=== PATIENT | male | born 1955 | race Two or more races ===

== ENCOUNTER 2019-09-27 10:38 | Emergency (ER) | payer MEDICAID, OTHER ==
[~2019-09-27] VITALS: Ht 170.2 cm; Wt 77.1 kg
[2019-09-27 10:46] VITALS: BP 142/73
== END 2019-09-27 11:24 | disposition home or self-care (01) ==
LOC: EDBD 10:38 → ER 10:38
DX: S20.312A Abrasion of left front wall of thorax, initial encounter (principal); Y08.89XA Assault by other specified means, initial encounter; Y93.89 Activity, other specified; Y92.89 Other specified places as the place of occurrence of the external cause; Y99.8 Other external cause status
CPT/HCPCS: 71101